=== PATIENT | female | born 1990 | race Caucasian/White ===

== ENCOUNTER 2017-02-12 17:09 | Emergency (ER) | payer OTHER ==
--- NOTE | 2017-02-12 18:09 | ED CLINICAL REPORT ---
Clinical Report - Physicians/Mid Levels [facility] [address] [place] [address] 02/12/2017 17:10 Patient: PARMJIT KHALIL Time Seen: 17:18 Feb 12 2017. Arrived- By private vehicle. Historian- patient. HISTORY OF PRESENT ILLNESS Chief Complaint: RECTAL BLEEDING. This started 4 days. The patient has had rectal bleeding. (patient reports last menstrual period about 2 weeks previously, now on her menses over the last 4-5 days, some abdominal cramping. Patient in addition reports constipation, history of similar, took some pypo-qal-cnxisef medications yesterday, now only diarrhea, feels as if she is going to have a large stool, afraid of such. Patient reports some bright red blood from her rectum was small bowel movements. Patient is sexually active.). REVIEW OF SYSTEMS No abnormal bleeding, cough or difficulty breathing. All systems otherwise negative, except as recorded above. PAST HISTORY Problems: Constipation. Dysfunctional Uterine Bleeding. Laceration. Tetanus Status. LNMP - Last Normal Menstrual Period. Medications: Stool Softener Oral. Allergies: No Known Drug Allergy. SOCIAL HISTORY Never smoker. No alcohol use or drug use. ADDITIONAL NOTES The nursing notes have been reviewed. PHYSICAL EXAM Vital Signs: 02/12/2017 17:25 BP: 123/76. HR: 99. RR: 22. O2 saturation: 96%. Temp: 98.4 F. Appearance: Alert. No acute distress. ENT: Ears normal. Nose normal. CVS: Normal heart rate and rhythm. Heart sounds normal. Respiratory: No respiratory distress. Abdomen: Soft and nontender. Bowel sounds normal. No rebound tenderness or distention. Rectal: (Large stool at the distal aspect of the rectum light brown and Hemoccult negative. Chaperoned exam with RN.). Neuro: Oriented X 3. PROGRESS AND PROCEDURES Course of Care: Hemoccult negative stool, attempted to disimpact patient, sure she did not tolerate such, and asked me to stop, informed that she has a large amount of stool at the distal aspect of her rectum, which inevitably will have to be evacuated. Consequently to such patient had a large bowel movement on the floor in the bathroom, while having previously been told to use the toilet, as well as using an adult diaper. Pt tearful/ afraid/ nervous. consequences such she felt embarrassed and wished to go home. I informed patient that I still do kanwal is , having an ectopic, and she really needs to stay, however she did not want any procedures or any further pelvic exam completed. Patient left the department with her father, JOEY. Patient is stable. Patient/family counseled. CLINICAL IMPRESSION Vaginal Bleeding Constipation (Resolved in ER). (Electronically signed by Kenna Luna P.A.-C 02/12/2017 18:09)
--- NOTE | 2017-02-12 18:09 | ED ORDER SUMMARY ---
..... Patient: PARMJIT KHALIL OrderSheet [facility] VisitID: [id number] [address] [place] [address] 26y, F Registration Date/Time: 02/12/2017 ORDER SHEET Weight: 72.5 kg (stated) Allergies: No Known Drug Allergy GENERAL ORDERS: Pelvic Exam Setup (17:39 02/12/2017 Trista Mitchell) (Ack 17:51 LNations ER Tech1) (17:51 LNations ER Tech1) MEDICATION ORDERS: IV FLUIDS: ORDER SHEET NOTES: [Electronically signed by Tk Calderon R.N. (18:07 02/12/2017)] [Electronically locked/signed by Tk Calderon R.N. (18:07 02/12/2017)]
--- NOTE | 2017-02-12 18:09 | ED NURSING NOTES ---
Clinical Report - [facility] [address] [place] [address] 02/12/2017 17:10 Patient: PARMJIT KHALIL TRIAGE Triage time 17:26. Acuity: LEVEL 3. Chief Complaint: VAGINAL BLEED and (rectal bleeding with pain). --17:33 Tk Calderon R.N. 17:25 02/12/17. BP: 123/76. HR: 99. RR: 22. O2 saturation: 96%. Temp: 98.4 F. Pain level now 8. --17:33 Tk Calderon R.N. Weight: 72.5 kg stated. Height/Length: 65 inches Per Patient. BMI: 26.6. --17:30 Tk Calderon R.N. Medications Stool Softener Oral. --17:30 Tk Calderon R.N. Medication/allergy information source: the patient. --17:33 Tk Calderon R.N. Allergies No Known Drug Allergy. --17:30 Tk Calderon R.N. History Arrived by private vehicle. Historian: patient. Accompanied by family. Onset. (a few days). ( Pt has been bleeding from her rectum for the past few days that is dark in color that was stool with the blood. The stool was light brown. Pt is not sure anymore if it is rectal bleeding or vaginal bleeding. Pt had an in August. Pt has been constipated and took some meds and has been having rectal bleeding since. Pt feels like there is a blockage of stool in her rectum.). 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 PAST MEDICAL HX: Denies current : pt stated she is on her cycle. --17:33 Tk Calderon R.N. SOCIAL HX: Never smoker. No alcohol use or drug use. --17:36 Tk Calderon R.N. PROBLEMS: Dysfunctional Uterine Bleeding. Laceration. Tetanus Status. LNMP - Last Normal Menstrual Period. --17:31 Tk Calderon R.N. Constipation. --17:33 Tk Calderon R.N. Interventions ID band on patient. To treatment room. --17:33 Tk Calderon R.N. PHYSICAL ASSESSMENT ( Pt was placed in a adult depends due to unable to control her bowels. Pt has a long history of constipation, but has not been taking her stool softeners. Pt is having rectal bleeding. The PA was present in the room with the female charge nurse for the rectal and vaginal exam.). GENERAL / NEURO / PSYCH: Alert. Oriented X 4. Appears in pain and anxious. HEENT: Mucous membranes are pink. RESPIRATORY: Respirations not labored. Breath sounds within normal limits. CVS: Normal heart rate and rhythm. Capillary refill less than 2 seconds. GI / : Abdomen soft and nontender. Bowel sounds within normal limits. Hematuria noted. Moderate vaginal bleeding present, consisting of dark blood (pt stated she was on her cycle). SKIN: Skin is warm and dry. --17:39 Tk Calderon R.N. NURSING PROGRESS NOTES Patient gowned. Two patient identifiers checked. Call light placed in reach. Side rails up x 1. Bed placed in lowest position. Brakes of bed on. ( Warm blanket was given. Father of the pt was asked to wait in the lobby during the examination for patient privacy.). --17:40 Tk Calderon R.N. ( Father asked for a female to help the pt out of the bathroom. Pt had a BM on the floor. She informed the charge nurse that she refuses a vaginal exam and wants to leave. The PA was informed.). --18:04 Tk Calderon R.N. ( The PA went to speak to the patient and they just left without saying anything.). --18:05 kT Calderon R.N. DISPOSITION / DISCHARGE Departure time: 18:07. Condition at departure: unchanged. The patient left the Emergency Department against medical advice and without completion of treatment; patient was accompanied by a parent. The patient appears to be alert, oriented x4, coherent and in no acute distress. The patient stated is leaving the ED (pt felt embarrassed about having a BM on the floor and wanted nothing done and left the room. The PA saw the pt leave. She was alert and orientated x 4. Pt ambulated without assistance.). Notified the ED physician of patient departure. She left the Emergency Department ambulatory and via private vehicle. --18:07 Tk Calderon R.N. Locked/Released at 02/12/2017 18:07 by Tk Calderon R.N.
--- NOTE | 2017-02-12 18:09 | ED MAR SUMMARY ---
..... Medication Administration Record [facility] [address], [place] [id number] Patient: PARMJIT KHALIL Visit ID: [id number] 26y, F Weight: 72.5 kg Height/Length: 65 in BMI: 26.6 ALLERGIES: No Known Drug Allergy
--- NOTE | 2017-02-12 18:09 | ED MED RECONCILIATION SUMMARY ---
Patient: PARMJIT KHALIL Medication Reconciliation Report [facility] VisitID: [id number] [address] [place] [address] 26y, F Registration Date/Time: 02/12/2017 Weight: 72.5 kg Height/Length: 65 in. BMI: 26.6 ALLERGIES: No Known Drug Allergy The patient's Home Medications are listed below: THE FOLLOWING MEDICATIONS NEED TO BE RECONCILED: Stool Softener Oral The source(s) of the original Home Medication information: patient The following Medications were given to the patient in the Emergency Department: None. The following Medications were prescribed to the patient: None.
--- NOTE | 2017-02-12 18:09 | ED DISCHARGE INSTRUCTIONS ---
Patient: PARMJIT KHALIL General Instructions [facility] VisitID: [id number] [address] [place] [address] 26y, F Registration Date/Time: 02/12/2017 Vaginal Bleeding Constipation (Resolved in ER). (Electronically signed by Kenna Luna P.A.-C 02/12/2017 18:09)
--- NOTE | 2017-02-12 18:09 | ED CLINICAL REPORT ---
Clinical Report - Physicians/Mid Levels [facility] [address] [place] [address] 02/12/2017 17:10 Patient: PARMJIT KHALIL Time Seen: 17:18 Feb 12 2017. Arrived- By private vehicle. Historian- patient. HISTORY OF PRESENT ILLNESS Chief Complaint: RECTAL BLEEDING. This started 4 days. The patient has had rectal bleeding. (patient reports last menstrual period about 2 weeks previously, now on her menses over the last 4-5 days, some abdominal cramping. Patient in addition reports constipation, history of similar, took some cilp-kth-mmmfhld medications yesterday, now only diarrhea, feels as if she is going to have a large stool, afraid of such. Patient reports some bright red blood from her rectum was small bowel movements. Patient is sexually active.). REVIEW OF SYSTEMS No abnormal bleeding, cough or difficulty breathing. All systems otherwise negative, except as recorded above. PAST HISTORY Problems: Constipation. Dysfunctional Uterine Bleeding. Laceration. Tetanus Status. LNMP - Last Normal Menstrual Period. Medications: Stool Softener Oral. Allergies: No Known Drug Allergy. SOCIAL HISTORY Never smoker. No alcohol use or drug use. ADDITIONAL NOTES The nursing notes have been reviewed. PHYSICAL EXAM Vital Signs: 02/12/2017 17:25 BP: 123/76. HR: 99. RR: 22. O2 saturation: 96%. Temp: 98.4 F. Appearance: Alert. No acute distress. ENT: Ears normal. Nose normal. CVS: Normal heart rate and rhythm. Heart sounds normal. Respiratory: No respiratory distress. Abdomen: Soft and nontender. Bowel sounds normal. No rebound tenderness or distention. Rectal: (Large stool at the distal aspect of the rectum light brown and Hemoccult negative. Chaperoned exam with RN.). Neuro: Oriented X 3. PROGRESS AND PROCEDURES Course of Care: Hemoccult negative stool, attempted to disimpact patient, sure she did not tolerate such, and asked me to stop, informed that she has a large amount of stool at the distal aspect of her rectum, which inevitably will have to be evacuated. Consequently to such patient had a large bowel movement on the floor in the bathroom, while having previously been told to use the toilet, as well as using an adult diaper. Pt tearful/ afraid/ nervous. consequences such she felt embarrassed and wished to go home. I informed patient that I still do kanwal is , having an ectopic, and she really needs to stay, however she did not want any procedures or any further pelvic exam completed. Patient left the department with her father, JOEY. Patient is stable. Patient/family counseled. CLINICAL IMPRESSION Vaginal Bleeding Constipation (Resolved in ER). (Electronically signed by Kenna Luna P.A.-C 02/12/2017 18:09)
--- NOTE | 2017-02-12 18:09 | ED ORDER SUMMARY ---
..... Patient: PARMJIT KHALIL OrderSheet [facility] VisitID: [id number] [address] [place] [address] 26y, F Registration Date/Time: 02/12/2017 ORDER SHEET Weight: 72.5 kg (stated) Allergies: No Known Drug Allergy GENERAL ORDERS: Pelvic Exam Setup (17:39 02/12/2017 Trista Mitchell) (Ack 17:51 LNations ER Tech1) (17:51 LNations ER Tech1) MEDICATION ORDERS: IV FLUIDS: ORDER SHEET NOTES: [Electronically signed by Tk Calderon R.N. (18:07 02/12/2017)] [Electronically locked/signed by Tk Calderon R.N. (18:07 02/12/2017)]
--- NOTE | 2017-02-12 18:09 | ED MAR SUMMARY ---
..... Medication Administration Record [facility] [address], [place] [id number] Patient: PARMJIT KHALIL Visit ID: [id number] 26y, F Weight: 72.5 kg Height/Length: 65 in BMI: 26.6 ALLERGIES: No Known Drug Allergy
--- NOTE | 2017-02-12 18:09 | ED MED RECONCILIATION SUMMARY ---
Patient: PARMJIT KHALIL Medication Reconciliation Report [facility] VisitID: [id number] [address] [place] [place] [address] 26y, F Registration Date/Time: 02/12/2017 Weight: 72.5 kg Height/Length: 65 in. BMI: 26.6 ALLERGIES: No Known Drug Allergy The patient's Home Medications are listed below: THE FOLLOWING MEDICATIONS NEED TO BE RECONCILED: Stool Softener Oral The source(s) of the original Home Medication information: patient The following Medications were given to the patient in the Emergency Department: None. The following Medications were prescribed to the patient: None.
--- NOTE | 2017-02-12 18:09 | ED DISCHARGE INSTRUCTIONS ---
Patient: PARMJIT KHALIL General Instructions [facility] VisitID: [id number] [address] [place] [address] 26y, F Registration Date/Time: 02/12/2017 Vaginal Bleeding Constipation (Resolved in ER). (Electronically signed by Kenna Luna P.A.-C 02/12/2017 18:09)
--- NOTE | 2017-02-12 18:09 | ED NURSING NOTES ---
Clinical Report - Nurs[facility] [address] [place] [address] 02/12/2017 17:10 Patient: PARMJIT KHALIL TRIAGE Triage time 17:26. Acuity: LEVEL 3. Chief Complaint: VAGINAL BLEED and (rectal bleeding with pain). --17:33 Tk Calderon R.N. 17:25 02/12/17. BP: 123/76. HR: 99. RR: 22. O2 saturation: 96%. Temp: 98.4 F. Pain level now 8. --17:33 Tk Calderon R.N. Weight: 72.5 kg stated. Height/Length: 65 inches Per Patient. BMI: 26.6. --17:30 Tk Calderon R.N. Medications Stool Softener Oral. --17:30 Tk Calderon R.N. Medication/allergy information source: the patient. --17:33 Tk Calderon R.N. Allergies No Known Drug Allergy. --17:30 Tk Calderon R.N. History Arrived by private vehicle. Historian: patient. Accompanied by family. Onset. (a few days). ( Pt has been bleeding from her rectum for the past few days that is dark in color that was stool with the blood. The stool was light brown. Pt is not sure anymore if it is rectal bleeding or vaginal bleeding. Pt had an in August. Pt has been constipated and took some meds and has been having rectal bleeding since. Pt feels like there is a blockage of stool in her rectum.). 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 PAST MEDICAL HX: Denies current : pt stated she is on her cycle. --17:33 Tk Calderon R.N. SOCIAL HX: Never smoker. No alcohol use or drug use. --17:36 Tk Calderon R.N. PROBLEMS: Dysfunctional Uterine Bleeding. Laceration. Tetanus Status. LNMP - Last Normal Menstrual Period. --17:31 Tk Calderon R.N. Constipation. --17:33 Tk Calderon R.N. Interventions ID band on patient. To treatment room. --17:33 Tk Calderon R.N. PHYSICAL ASSESSMENT ( Pt was placed in a adult depends due to unable to control her bowels. Pt has a long history of constipation, but has not been taking her stool softeners. Pt is having rectal bleeding. The PA was present in the room with the female charge nurse for the rectal and vaginal exam.). GENERAL / NEURO / PSYCH: Alert. Oriented X 4. Appears in pain and anxious. HEENT: Mucous membranes are pink. RESPIRATORY: Respirations not labored. Breath sounds within normal limits. CVS: Normal heart rate and rhythm. Capillary refill less than 2 seconds. GI / : Abdomen soft and nontender. Bowel sounds within normal limits. Hematuria noted. Moderate vaginal bleeding present, consisting of dark blood (pt stated she was on her cycle). SKIN: Skin is warm and dry. --17:39 Tk Calderon R.N. NURSING PROGRESS NOTES Patient gowned. Two patient identifiers checked. Call light placed in reach. Side rails up x 1. Bed placed in lowest position. Brakes of bed on. ( Warm blanket was given. Father of the pt was asked to wait in the lobby during the examination for patient privacy.). --17:40 Tk Calderon R.N. ( Father asked for a female to help the pt out of the bathroom. Pt had a BM on the floor. She informed the charge nurse that she refuses a vaginal exam and wants to leave. The PA was informed.). --18:04 Tk Calderon R.N. ( The PA went to speak to the patient and they just left without saying anything.). --18:05 Tk Calderon R.N. DISPOSITION / DISCHARGE Departure time: 18:07. Condition at departure: unchanged. The patient left the Emergency Department against medical advice and without completion of treatment; patient was accompanied by a parent. The patient appears to be alert, oriented x4, coherent and in no acute distress. The patient stated is leaving the ED (pt felt embarrassed about having a BM on the floor and wanted nothing done and left the room. The PA saw the pt leave. She was alert and orientated x 4. Pt ambulated without assistance.). Notified the ED physician of patient departure. She left the Emergency Department ambulatory and via private vehicle. --18:07 Tk Calderon R.N. Locked/Released at 02/12/2017 18:07 by Tk Calderon R.N.
== END 2017-02-12 18:07 | disposition home or self-care (01) ==
LOC: ED SRH 17:09
DX: K59.00 Constipation, unspecified (principal); N93.9 Abnormal uterine and vaginal bleeding, unspecified